=== PATIENT | male | born 1975 | race African-American/Black ===

== ENCOUNTER 2022-09-02 18:45 | Emergency (ER) | payer BC, OTHER ==
[~2022-09-02] VITALS: Ht 172.7 cm; Wt 79.4 kg
[2022-09-02] MEDS ORDERED: OLAN2.5T3 PO (19:01)
[2022-09-02] MEDS ORDERED: BUPR100T5 PO (19:01)
[2022-09-02] MEDS ORDERED: LORAZEPAM 2 MG/1 ML VIAL IV ONE (19:15)
[2022-09-02 19:25] LABS: HEMATOCRIT 47.3 % (36.7-47.1); MEAN CORPUSCULAR HEMOGLOBIN 29.3 uug (23.8-33.4); MEAN CORPUSCULAR VOLUME 86.6 fL (73.0-96.2); PLATELET COUNT (AUTO) 321 K/uL (152-348)
[2022-09-02 19:43] LABS: CARBON DIOXIDE 25 mmol/L (21-32); CHLORIDE 99 mmol/L (98-107); CREATININE 1.3 mg/dL (0.6-1.3); GLUCOSE 98 mg/dL (74-106); POTASSIUM 4.1 mmol/L (3.5-5.1); UREA NITROGEN, BLOOD 14 mg/dL (7-18)
[2022-09-02] MEDS ORDERED: LORAZEPAM 2 MG/1 ML VIAL ONE (19:57)
[2022-09-02 20:04] LABS: THYROID STIMULATING HORMONE 2.034 mIU/mL (0.358-3.740)
[2022-09-02 20:07] LABS: MAGNESIUM 1.9 mg/dL (1.8-2.4)
[2022-09-02 20:23] LABS: *BILIRUBIN,URIN NEGATIVE (NEGATIVE); *BLOOD, URINE NEGATIVE (NEGATIVE); *CLARITY,URINE CLEAR (CLEAR); *COLOR,URINE YELLOW (YELLOW); *KETONES,URINE 1+ (NEGATIVE); *UROBILINOGEN,URINE 0.2 E.U./dl (NORMAL); LEUKOCYTE ESTERASE ,URINE NEGATIVE (NEGATIVE); NITRITE, URINE NEGATIVE (NEGATIVE); UGLUCOSE NEGATIVE (NEGATIVE)
[2022-09-02 20:48] LABS: BACTERIA,URINE NONE SEEN /HPF (NONE SEEN); RBC,URINE NONE SEEN /HPF (0-3); SQUAMOUS EPITHELIAL CELL,UR FEW /HPF (NONE SEEN); WBC,URINE 0-3 /HPF (0-3)
[2022-09-02 20:52] LABS: *AMPHETAMINE, URINE POSITIVE (NEGATIVE); *CANNABINOID, URINE NEGATIVE (NEGATIVE); *COCCAINE, URINE NEGATIVE (NEGATIVE); *PHENCYCLIDINE SCREEN,URINE NEGATIVE (NEGATIVE)
[2022-09-02] MEDS ORDERED: IOHEXOL 350 100 ML INFUS..BTL ONE (21:54)
[2022-09-02] MEDS ORDERED: SWABABLE VALVE TRANSFER SET EA MC ONE (21:54)
[2022-09-02] MEDS ORDERED: IV NORMAL SALINE 250 ML IV ONE (21:54)
--- NOTE | 2022-09-02 22:05 | NUR ---
Patient stated that they accidentally pulled out their IV. New IV was inserted. notified.
--- NOTE | 2022-09-03 00:02 | NUR ---
Patient is in room resting comfortably. Rise and fall of chest noted.
[2022-09-03] MEDS ORDERED: LORA0.5T48 PO (01:42)
[2022-09-03] MEDS ORDERED: IBUPROFEN 600 MG TABLET PO ONE (02:30)
--- NOTE | 2022-09-03 02:30 | NUR ---
Patient discharged to home in stable condition. Written and verbal after care instructions given. Patient verbalizes understanding of instructions. Stressed follow up or return to ER for worsening s/s. Patient walked out with steady gait.
[2022-09-03 03:43] VITALS: BP 126/88
== END 2022-09-03 02:35 | disposition home or self-care (01) ==
LOC: ER 18:45
DX: R00.0 Tachycardia, unspecified (principal); F15.10 Other stimulant abuse, uncomplicated; Z79.899 Other long term (current) drug therapy
CPT/HCPCS: 99285; 96374; 71275; 71045; 80048; 83735; 84443; 85025; 85379; 84484; 36415; 93005; 80307; 81001; J2060; Q9967; A4663